=== PATIENT | female | born 1945 | race Caucasian/White ===

== ENCOUNTER → 2017-11-28 | Outpatient (CLI) | payer MEDICARE ==
[~2017-11-28] MED LIST: GADOBUTROL 10 MMOL/10 ML PFS ONE; OMNIPAQUE 350 MG/ML, 75ML BOTTLE ONE
== END | disposition home or self-care (01) ==
LOC: CFH 09:00
PROVIDERS: ATTEND Psychiatry & Neurology Neurology
DX: D35.2 Benign neoplasm of pituitary gland (principal); J84.10 Pulmonary fibrosis, unspecified; D86.9 Sarcoidosis, unspecified
CPT/HCPCS: 70543; 71260; 82565; A9585; Q9967